=== PATIENT | female | born 1960 | race Caucasian/White ===

== ENCOUNTER → 2017-01-14 | Outpatient (CLI) | payer OTHER ==
--- NOTE | 2017-01-14 15:46 | XR ---
EXAMINATION TYPE: XR chest 2V DATE OF EXAM: 01/14/2017 COMPARISON: NONE HISTORY: Cough per order. Bronchopneumonia per order. TECHNIQUE: Frontal and lateral views of the chest are obtained. FINDINGS: There is suspicious masslike consolidation right lower lung on frontal view less well seen on lateral view. Low lung volumes are present. Left lung is clear. The cardiac silhouette size is w ithin normal limits. The osseous structures are intact. IMPRESSION: Suspicious right basilar masslike consolidation. Follow-up chest x-ray after treatment i s advised. If lesion persists further investigation with contrast-enhanced CT exam would be warranted .
== END | disposition home or self-care (01) ==
LOC: RADXRYALE 15:20
PROVIDERS: ATTEND Physician Assistant Medical
DX: J18.0 Bronchopneumonia, unspecified organism (principal)
CPT/HCPCS: 71020

== ENCOUNTER → 2023-03-10 | Outpatient (CLI) | payer OTHER ==
--- NOTE | 2023-03-10 14:10 | XR ---
EXAMINATION TYPE: XR shoulder limited LT DATE OF EXAM: 03/10/2023 COMPARISON: None HISTORY: Pain TECHNIQUE: 2 view left shoulder. FINDINGS: Femoral head articulates with the glenoid. Acromioclavicular junction appears normal. No ac [place] fractures are evident. Electronic device is on the surface of the lateral arm IMPRESSION: 1. No acute abnormality left shoulder
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
== END | disposition home or self-care (01) ==
LOC: RADXRMAIN 12:17
PROVIDERS: ATTEND Family Medicine
DX: M54.50 Low back pain, unspecified (principal); M25.512 Pain in left shoulder
CPT/HCPCS: 72100